=== PATIENT | female | born 1945 | race Caucasian/White ===

== ENCOUNTER 2017-06-12 11:15 | Emergency (ER) | payer OTHER ==
[~2017-06-12] VITALS: Ht 167.6 cm; Wt 66.2 kg
[2017-06-12] MEDS ORDERED: CLOP75TA (12:17)
[2017-06-12] MEDS ORDERED: ATOR20TA58 (12:17)
[2017-06-12] MEDS ORDERED: LACT1CAP2 (12:17)
[2017-06-12] MEDS ORDERED: ALEN10TA4 (12:17)
[2017-06-12] MEDS ORDERED: DIAZ2TAB (12:17)
[2017-06-12] MEDS ORDERED: ZOLP10TA (12:17)
[2017-06-12] MEDS ORDERED: PARO10TA3 (12:17)
[2017-06-12] MEDS ORDERED: ALPR0.254 (12:17)
[2017-06-12] MEDS ORDERED: ACYC200C (12:17)
[2017-06-12] MEDS ORDERED: OMEP40CA2 (12:17)
[2017-06-12] MEDS ORDERED: MELO15TA23 (12:17)
[2017-06-12] MEDS ORDERED: GABA400C (12:17)
[2017-06-12] MEDS ORDERED: HYDR-2802 (12:17)
[2017-06-12 12:28] LABS: BILIRUBIN,URINE NEGATIVE (NEG); GLUCOSE,URINE NEGATIVE (NEG); NITRITE,URINE NEGATIVE (NEG); PROTEIN,URINE NEGATIVE (NEG-TRACE); UROBILINOGEN,URINE 0.2 mg/dL (0.2 mg/dL)
[2017-06-12] MEDS ORDERED: ONDANSETRON PF 4 MG/2 ML VIAL. IV ONE (12:30)
[2017-06-12] MEDS ORDERED: HYDROmorphone 2 MG/ML VIAL IV ONE (12:30)
[2017-06-12] MEDS ORDERED: IV NORMAL SALINE 500ML BAG 500 ML IV ONE (12:30)
[2017-06-12 12:46] LABS: BACTERIA,URINE 0 /HPF (0-FEW); RBC,URINE 0 /HPF (0-2); SQUAMOUS EPITHELIAL CELL,UR FEW /LPF; WBC,URINE 0 /HPF (0-4)
--- NOTE | 2017-06-12 12:50 | PHYS DOC ---
Past Medical History Past Medical History: Arthritis, GERD Additional Past Medical Histor: siatica, fibromyalgia, silicone toxicity, sjoren's, Past Surgical History: No Surgical History Alcohol Use: None Drug Use: None Adult General Chief Complaint Chief Complaint: LOWER BACK PAIN OR INJURY [facility] HPI Patient is a 71 year old female who presents with exacerbation and worsening of her chronic back pain hip pain and lower extremity pain that she's had for many years. She denies any recent trauma. sHe reports that she suffers from Sjogren's and fibromyalgia. Denies fever or headache shortness of breath chest pain or abdominal pain. She was able to ambulate; denies any saddle paresthesia or urinary or fecal incontinence/retention. Denies fever. Takes narcotic pain medications at home. Review of Systems Review of Systems Constitutional: Denies fever or chills [] Eyes: Denies change in visual acuity, redness, or eye pain [] HENT: Denies nasal congestion or sore throat [] Respiratory: Denies cough or shortness of breath [] Cardiovascular: No additional information not addressed in HPI [] GI: Denies abdominal pain, nausea, vomiting, bloody stools or diarrhea [] : Denies dysuria or hematuria [] Musculoskeletal: Denies back pain or joint pain [] Integument: Denies rash or skin lesions [] Neurologic: Denies headache, focal weakness or sensory changes [] Endocrine: Denies polyuria or polydipsia [] Current Medications Current Medications Current Medications Medications (Trade) Dose Ordered Sig/Lesley Start Time Stop Time Status Last Admin Dose Admin Hydromorphone HCl (Dilaudid) 0.5 mg 1X ONCE 06/12/17 12:30 06/12/17 12:31 DC 06/12/17 12:55 0.5 MG Ondansetron HCl (Zofran) 4 mg 1X ONCE 06/12/17 12:30 06/12/17 12:31 DC 06/12/17 12:53 4 MG Sodium Chloride 500 ml @ 500 mls/hr 1X ONCE 06/12/17 12:30 06/12/17 13:29 DC 06/12/17 12:52 500 MLS/HR Allergies Allergies Allergies Coded Allergies Type Severity Reaction Last Updated Verified No Known Drug Allergies 06/12/17 No Physical Exam Physical Exam Constitutional: Well developed, well nourished, no acute distress, non-toxic appearance. [] HENT: Normocephalic, atraumatic, bilateral external ears normal, oropharynx moist, no oral exudates, nose normal. [] Eyes: PERRLA, EOMI, conjunctiva normal, no discharge. [] Neck: Normal range of motion, no tenderness, supple, no stridor. [] Cardiovascular:Heart rate regular rhythm, no murmur [] Lungs & Thorax: Bilateral breath sounds clear to auscultation [] Abdomen: Bowel sounds normal, soft, no tenderness, no masses, no pulsatile masses. [] Skin: Warm, dry, no erythema, no rash. [] Back: No tenderness, no CVA tenderness. No midline tenderness to the spine [] Extremities: No tenderness, no cyanosis, no clubbing, ROM intact, no edema. Except for nonspecific pain in the legs no specific area of tenderness or specific joint that is hurting. [] Neurologic: Alert and oriented X 3, normal motor function, normal sensory function, no focal deficits noted. 2+ patellar reflexes equal bilaterally. [] Psychologic: Affect normal, judgement normal, mood normal. [] Current Patient Data Vital Signs Vital Signs Date Time Temp Pulse Resp B/P (MAP) Pulse Ox O2 Delivery O2 Flow Rate FiO2 06/12/17 12:50 75 19 145/70 (95) 99 Room Air 06/12/17 11:51 98.3 98.3 Lab Values Laboratory Tests Test 06/12/17 11:50 06/12/17 12:55 Urine Collection Type Unknown Urine Color Yellow Urine Clarity Clear Urine pH 7.0 Urine Specific [place] <=1.005 Urine Protein Negative mg/dL (NEG-TRACE) Urine Glucose (UA) Negative mg/dL (NEG) Urine Ketones (Stick) Negative mg/dL (NEG) Urine Blood Negative (NEG) Urine Nitrite Negative (NEG) Urine Bilirubin Negative (NEG) Urine Urobilinogen Dipstick 0.2 mg/dL (0.2 mg/dL) Urine Leukocyte Esterase Negative (NEG) Urine RBC 0 /HPF (0-2) Urine WBC 0 /HPF (0-4) Urine Squamous Epithelial Cells Few /LPF Urine Bacteria 0 /HPF (0-FEW) White Blood Count 5.3 x10^3/uL (4.0-11.0) Red Blood Count 4.30 x10^6/uL (3.50-5.40) Hemoglobin 13.2 g/dL (12.0-15.5) Hematocrit 39.3 % (36.0-47.0) Mean Corpuscular Volume 91 fL (79-100) Mean Corpuscular Hemoglobin 31 pg (25-35) Mean Corpuscular Hemoglobin Concent 34 g/dL (31-37) Red Cell Distribution Width 13.5 % (11.5-14.5) Platelet Count 211 x10^3/uL (140-400) Neutrophils (%) (Auto) 67 % (31-73) Lymphocytes (%) (Auto) 25 % (24-48) Monocytes (%) (Auto) 8 % (0-9) Eosinophils (%) (Auto) 0 % (0-3) Basophils (%) (Auto) 0 % (0-3) Neutrophils # (Auto) 3.6 x10^3uL (1.8-7.7) Lymphocytes # (Auto) 1.3 x10^3/uL (1.0-4.8) Monocytes # (Auto) 0.4 x10^3/uL (0.0-1.1) Eosinophils # (Auto) 0.0 x10^3/uL (0.0-0.7) Basophils # (Auto) 0.0 x10^3/uL (0.0-0.2) Sodium Level 134 mmol/L (136-145) L Potassium Level 4.6 mmol/L (3.5-5.1) Chloride Level 97 mmol/L (98-107) L Carbon Dioxide Level 32 mmol/L (21-32) Anion Gap 5 (6-14) L Blood Urea Nitrogen 8 mg/dL (7-20) Creatinine 0.6 mg/dL (0.6-1.0) Estimated GFR (Cockcroft-Gault) 98.3 BUN/Creatinine Ratio 13 (6-20) Glucose Level 81 mg/dL (70-99) Calcium Level 9.2 mg/dL (8.5-10.1) Total Bilirubin 0.4 mg/dL (0.2-1.0) Aspartate Amino Transferase (AST) 24 U/L (15-37) Alanine Aminotransferase (ALT) 19 U/L (14-59) Alkaline Phosphatase 90 U/L (46-116) Total Protein 7.5 g/dL (6.4-8.2) Albumin 4.0 g/dL (3.4-5.0) Albumin/Globulin Ratio 1.1 (1.0-1.7) Laboratory Tests 06/12/17 12:55 Laboratory Tests 06/12/17 12:55 EKG EKG [] Radiology/Procedures Radiology/Procedures [] Course & Med Decision Making Course & Med Decision Making Pertinent Labs and Imaging studies reviewed. (See chart for details) Patient has a normal neurologic exam, and the complaints of been present for months to years. We'll check some basic labs treat symptomatically. Do not see an indication for emergent advanced imaging [Labs were unremarkable. Reexamination 1400 patient feels improved and is agreeable to going home. I'm recommended she follow up with her personal neurosurgeon at [facility] for a reexam to figure out if any further imaging studies are indicated. No emergent indication for advanced imaging.] Dragon Disclaimer Dragon Disclaimer This electronic medical record was generated, in whole or in part, using a voice recognition dictation system. Departure Departure Impression: Primary Impression: Fibromyalgia syndrome Additional Impressions: Chronic low back pain Bilateral lower extremity pain Disposition: HOME, SELF-CARE Condition: IMPROVED Referrals: LUIS ANTONIO PATEL MD (PCP) Patient Instructions: Chronic Back Pain, Fibromyalgia Additional Instructions: Please follow-up with your primary care physician and your personal neurosurgeon for consultation. Problem Qualifiers ISAAC LOVE MD Jun 12, 2017 12:50
[2017-06-12 13:13] LABS: CALCIUM 9.2 mg/dL (8.5-10.1); CREATININE 0.6 mg/dL (0.6-1.0); GFR 98.3; POTASSIUM 4.6 mmol/L (3.5-5.1)
[2017-06-12 13:16] LABS: BASO % 0 % (0-3); EOS % 0 % (0-3); HEMATOCRIT 39.3 % (36.0-47.0); HEMOGLOBIN 13.2 g/dL (12.0-15.5); LYMPH # 1.3 x10^3/uL (1.0-4.8); LYMPH % 25 % (24-48); MEAN CORPUSCULAR HEMOGLOBIN 31 pg (25-35); MEAN CORPUSCULAR HGB CONC 34 g/dL (31-37); MEAN CORPUSCULAR VOLUME 91 fL (79-100); MONO % 8 % (0-9); NEUT % 67 % (31-73); PLATELET COUNT 211 x10^3/uL (140-400); RED CELL DISTRIBUTION WIDTH 13.5 % (11.5-14.5); WHITE BLOOD COUNT 5.3 x10^3/uL (4.0-11.0)
[2017-06-12 13:21] LABS: ALBUMIN/GLOBULIN RATIO 1.1 (1.0-1.7); TOTAL BILIRUBIN 0.4 mg/dL (0.2-1.0); TOTAL PROTEIN 7.5 g/dL (6.4-8.2)
[2017-06-12 13:30] VITALS: BP 116/63
== END 2017-06-12 14:27 | disposition home or self-care (01) ==
LOC: ER 11:15
DX: M79.7 Fibromyalgia (principal); G89.29 Other chronic pain; M54.5 Low back pain; M79.604 Pain in right leg; M79.605 Pain in left leg; M25.552 Pain in left hip; M25.551 Pain in right hip; M35.00 Sjogren syndrome, unspecified; K21.9 Gastro-esophageal reflux disease without esophagitis; M19.90 Unspecified osteoarthritis, unspecified site
CPT/HCPCS: 36415; 80053; 81001; 85027; 96361; 96374; 96375; 99284; J1170; J2405; J7040